=== PATIENT | female | born 1950 | race Caucasian/White ===

== ENCOUNTER 2016-07-17 08:18 | Day surgery (SDC) | payer MEDICARE ==
[~2016-07-17] VITALS: Ht 152.4 cm; Wt 76.0 kg
[~2016-07-17 08:18] MED LIST: LACTATED RINGERS 1,000 ML IV SCH; SODIUM CHLORIDE FLUSH 3 ML SYR IV PRN; ceFAZolin 2,000 MG in WATER (STERILE) FOR INJECTION 20 ML IV SCH
[2016-07-17 08:29] VITALS: BP 154/117
[2016-07-17] MEDS ORDERED: HEPARIN 5000 UNIT/0.5 ML SYRINGE ONE (09:30)
[2016-07-17] MEDS ORDERED: LIDOCAINE/EPINEPHRINE 1% 1:100,000 (XYLOCAINE) 30 ML VIAL INJ ONE (09:31)
[2016-07-17] MEDS ORDERED: PROPOFOL 20 ML IV ONE (10:03)
[2016-07-17] MEDS ORDERED: MIDAZOLAM 2 MG/2 ML (VERSED) VIAL ONE (10:04)
[2016-07-17] MEDS ORDERED: ALFENTANIL 500 MCG/ML (ALFENTA) 5 ML AMP IV ONE (10:04)
[2016-07-17] MEDS ORDERED: ceFAZolin 1000 MG (ANCEF) VIAL ONE (10:35)
[2016-07-17 11:24] VITALS: BP 145/85
[2016-07-17 11:49] VITALS: BP 115/63
[2016-07-17] MEDS ORDERED: KETOROLAC 15 MG/ML (TORADOL) 1 ML VIAL IV PRN (12:05)
[2016-07-17] MEDS ORDERED: ONDANSETRON 2 MG/ML (Z0FRAN) 2 ML VIAL IV PRN (12:05)
[2016-07-17] MEDS ORDERED: METOCLOPRAMIDE 10 MG/2 ML (REGLAN) VIAL IV PRN (12:05)
[2016-07-17] MEDS ORDERED: morphine INJ 4 MG/ML 1 ML SYRINGE IV PRN (12:05)
== END 2016-07-17 11:55 | disposition home or self-care (01) ==
LOC: ASC 08:18
PROVIDERS: ATTEND Surgery
DX: C78.02 Secondary malignant neoplasm of left lung (principal)
CPT/HCPCS: 36561; 77001; C1788; J0690; J1644; J2250; J7120

== ENCOUNTER → 2016-10-15 | Outpatient (CLI) | payer MEDICARE ==
[~2016-10-15] MED LIST changes: +ASPI-860 PO; +CALC-140 PO; -LACTATED RINGERS 1,000 ML IV SCH; +METH10TA54 PO; +NF-VITD400 PO; +OMG1KC PO; +PANT40TA3 PO; +SMV10T PO; +SMV20T PO; -SODIUM CHLORIDE FLUSH 3 ML SYR IV PRN; +VITA100T7 PO; -ceFAZolin 2,000 MG in WATER (STERILE) FOR INJECTION 20 ML IV SCH; +thyroid
== END ==
LOC: RAD 12:06
PROVIDERS: ATTEND Nurse Practitioner
DX: R06.02 Shortness of breath (principal); C34.92 Malignant neoplasm of unspecified part of left bronchus or lung
CPT/HCPCS: 93306